=== PATIENT | female | born 1955 | race Caucasian/White ===

== ENCOUNTER 2017-09-19 03:34 | Emergency (ER) | payer OTHER ==
[2017-09-19 04:19] LABS: APPEARANCE CLEAR (CLEAR); COLOR YELLOW (YELLOW); GLUCOSE NEGATIVE (NEGATIVE); KETONE NEGATIVE (NEGATIVE); NITRITE NEGATIVE (NEGATIVE); PROTEIN NEGATIVE (NEGATIVE); UROBILINOGEN NORMAL (NORMAL)
[2017-09-19 04:20] LABS: BILIRUBIN NEGATIVE (NEGATIVE)
== END 2017-09-19 04:40 | disposition home or self-care (01) ==
LOC: D.ER 03:34
PROVIDERS: Emergency Medicine
DX: R10.9 Unspecified abdominal pain (principal); M54.5 Low back pain